=== PATIENT | female | born 1965 | race Caucasian/White ===

== ENCOUNTER 2016-09-19 17:21 | Emergency (ER) | payer OTHER ==
[~2016-09-19] VITALS: Ht 177.8 cm; Wt 81.5 kg
[~2016-09-19 17:21] MED LIST: LYSI500T11 PO; NORE5TAB PO; PARO10TA73 PO; PARO7.5C PO; TOPI50TA77 PO; ZOLP5TAB6 PO
[2016-09-19] MEDS ORDERED: SODIUM CHLORIDE 0.9% 1,000 ML IV ONE (17:43)
[2016-09-19] MEDS ORDERED: SODIUM CHLORIDE 0.9% 1,000ML IVBOLUS ONE (18:00)
[2016-09-19] MEDS ORDERED: METOCLOPRAMIDE 5 MG/ML, 2ML IVPush ONE (18:00)
[2016-09-19] MEDS ORDERED: HYDROmorphone 1 MG/ML, 1ML IVPush PRN ×2 (18:00→19:30)
[2016-09-19] MEDS ORDERED: SODIUM CHLORIDE FLUSH 10ML SYR IVF ONE (18:00)
[2016-09-19] MEDS ORDERED: METOCLOPRAMIDE 5 MG/ML, 2ML ONE (18:06)
[2016-09-19] MEDS ORDERED: HYDROmorphone 1 MG/ML, 1ML ONE ×2 (18:06→19:49)
[2016-09-19 20:51] VITALS: BP 142/80
== END 2016-09-19 20:52 | disposition home or self-care (01) ==
LOC: ED 18:17
DX: G43.909 Migraine, unspecified, not intractable, without status migrainosus (principal); K58.9 Irritable bowel syndrome, unspecified; Z90.710 Acquired absence of both cervix and uterus; Z90.49 Acquired absence of other specified parts of digestive tract
CPT/HCPCS: 96361; 96374; 96375; 96376; 99284; J1170; J2765; J7030

== ENCOUNTER 2016-11-24 14:15 | Emergency (ER) | payer OTHER ==
[~2016-11-24] VITALS: Ht 177.8 cm; Wt 78.0 kg
[2016-11-24] MEDS ORDERED: METOCLOPRAMIDE 5 MG/ML, 2ML ONE (14:53)
[2016-11-24] MEDS ORDERED: HYDROmorphone 1 MG/ML, 1ML ONE (14:53)
[2016-11-24] MEDS ORDERED: HYDROmorphone 1 MG/ML, 1ML IV ONE (15:00)
[2016-11-24] MEDS ORDERED: SODIUM CHLORIDE FLUSH 10ML SYR IVF ONE (15:00)
[2016-11-24] MEDS ORDERED: METOCLOPRAMIDE 5 MG/ML, 2ML IVPush ONE (15:00)
[2016-11-24] MEDS ORDERED: SODIUM CHLORIDE 0.9% 1,000ML IVBOLUS ONE (15:00)
[2016-11-24 15:01] LABS: ASPARTATE AMINO TRANSFERASE 36 U/L (15-37); BLOOD UREA NITROGEN 16 mg/dL (7-18)
[2016-11-24] MEDS ORDERED: ONDANSETRON 2MG/ML, 2ML ONE ×2 (16:08→18:44)
[2016-11-24] MEDS ORDERED: ONDANSETRON 2MG/ML, 2ML IVPush ONE ×2 (16:30→19:00)
[2016-11-24] MEDS ORDERED: DEXAMETHASONE 4 MG/ML, 1ML IVPush ONE (18:00)
[2016-11-24] MEDS ORDERED: MAGNESIUM SULFATE PMX 2GM/50ML 50 ML IV ONE (18:00)
[2016-11-24] MEDS ORDERED: DEXAMETHASONE 4 MG/ML, 5ML ONE (18:03)
[2016-11-24 20:33] VITALS: BP 138/80
== END 2016-11-24 20:35 | disposition home or self-care (01) ==
LOC: ED 14:56
DX: R51 Headache (principal); R11.2 Nausea with vomiting, unspecified; R19.7 Diarrhea, unspecified; Z90.49 Acquired absence of other specified parts of digestive tract; Z90.710 Acquired absence of both cervix and uterus; Z90.721 Acquired absence of ovaries, unilateral
CPT/HCPCS: 36415; 80053; 83690; 85025; 96361; 96365; 96366; 96375; 96376; 99285; J1100; J1170; J2405; J2765; J3475; J7030

== ENCOUNTER 2017-09-26 11:10 | Emergency (ER) | payer OTHER ==
[~2017-09-26] VITALS: Ht 177.8 cm; Wt 72.0 kg
[~2017-09-26 11:10] MED LIST changes: -LYSI500T11 PO; +LYSI500T25 PO; -TOPI50TA77 PO; +TOPI50TA8 PO
[2017-09-26 11:34] LABS: MICROSCOPIC NOT IND
[2017-09-26 11:37] LABS: CULTURE INDICATED? NO
[2017-09-26] MEDS ORDERED: MORPHINE SULFATE 4 MG/ML, 1ML IVPush PRN (12:00)
[2017-09-26] MEDS ORDERED: SODIUM CHLORIDE 0.9% 1,000ML IVBOLUS ONE (12:00)
[2017-09-26] MEDS ORDERED: SODIUM CHLORIDE FLUSH 10ML SYR IVF ONE (12:00)
[2017-09-26] MEDS ORDERED: METOCLOPRAMIDE 5 MG/ML, 2ML IVPush ONE (12:00)
[2017-09-26 12:05] LABS: BASOPHILS # (AUTO) 0.04 x10^3/uL (0-0.1); BASOPHILS % (AUTO) 1 % (0-1); EOSINOPHILS # (AUTO) 0.12 x10^3/uL (0-0.4); EOSINOPHILS % (AUTO) 3 % (1-7); LYMPHOCYTES % (AUTO) 34 % (22-44); MD NO; MEAN CORPUSCULAR HEMOGLOBIN 25.2 pg (27.0-34.8); MEAN CORPUSCULAR HGB CONC 31.7 g/dL (32.4-35.8); MEAN CORPUSCULAR VOLUME 79.4 fL (80-100); MONOCYTES # (AUTO) 0.27 x10^3/uL (0.2-0.8); MONOCYTES % (AUTO) 8 % (2-9); NEUTROPHILS # (AUTO) 1.89 x10^3/uL (1.8-6.8); NEUTROPHILS % (AUTO) 54 % (42-75); PLATELET COUNT 294 x10^3/uL (130-400); RED BLOOD COUNT 4.54 x10^6/uL (3.82-5.3); RED CELL DISTRIBUTION WIDTH 16.8 % (9.6-15.2)
[2017-09-26 12:13] LABS: ALANINE AMINOTRANSFERASE 29 U/L (12-78); ALBUMIN 3.7 g/dL (3.4-5.0); ANION GAP 6 mmol/L (5-15); CALCIUM 8.5 mg/dL (8.5-10.1); CHLORIDE 113 mmol/L (98-107); CREATININE 0.62 mg/dL (0.55-1.02)
[2017-09-26 12:16] LABS: ALKALINE PHOSPHATASE 83 U/L (45-117); BILIRUBIN,TOTAL 0.3 mg/dL (0.2-1.0); TOTAL PROTEIN 7.3 g/dL (6.4-8.2)
[2017-09-26] MEDS ORDERED: METOCLOPRAMIDE 5 MG/ML, 2ML ONE (12:21)
[2017-09-26] MEDS ORDERED: MORPHINE SULFATE 4 MG/ML, 1ML ONE (12:21)
[2017-09-26 12:43] VITALS: BP 126/76
[2017-09-26] MEDS ORDERED: OMNIPAQUE 350 MG/ML, 100ML BOTTLE ONE (12:43)
== END 2017-09-26 13:55 | disposition home or self-care (01) ==
LOC: ED 13:39
DX: R10.31 Right lower quadrant pain (principal); K58.0 Irritable bowel syndrome with diarrhea; G89.29 Other chronic pain; Z90.49 Acquired absence of other specified parts of digestive tract; Z90.710 Acquired absence of both cervix and uterus
CPT/HCPCS: 36415; 74177; 80053; 81003; 83690; 85025; 93005; 96361; 96374; 96375; 99285; J2765; J7030; Q9967

== ENCOUNTER 2018-02-17 20:43 | Emergency (ER) | payer OTHER ==
[~2018-02-17] VITALS: Ht 177.8 cm; Wt 65.0 kg
[2018-02-17] MEDS ORDERED: KETOROLAC 30 MG/1 ML IVPush ONE (21:30)
[2018-02-17] MEDS ORDERED: SODIUM CHLORIDE FLUSH 10ML SYR IVF ONE (21:30)
[2018-02-17] MEDS ORDERED: DIPHENHYDRAMINE 25 MG CAPSULE PO ONE (21:30)
[2018-02-17] MEDS ORDERED: ACETAMINOPHEN 500 MG TABLET PO ONE (21:30)
[2018-02-17] MEDS ORDERED: SODIUM CHLORIDE 0.9% 1,000ML IVBOLUS ONE (21:30)
[2018-02-17] MEDS ORDERED: METOCLOPRAMIDE 5 MG/ML, 2ML IVPush ONE (21:30)
[2018-02-17 21:43] LABS: BASOPHILS # (AUTO) 0.01 x10^3/uL (0-0.1); BASOPHILS % (AUTO) 0 % (0-1); EOSINOPHILS # (AUTO) 0.01 x10^3/uL (0-0.4); EOSINOPHILS % (AUTO) 0 % (1-7); LYMPHOCYTES # (AUTO) 0.81 x10^3/uL (1-3.4); LYMPHOCYTES % (AUTO) 15 % (22-44); MD NO; MEAN CORPUSCULAR HEMOGLOBIN 28.1 pg (27.0-34.8); MEAN CORPUSCULAR HGB CONC 33.1 g/dL (32.4-35.8); MEAN CORPUSCULAR VOLUME 84.8 fL (80-100); MEAN PLATELET VOLUME 7.8 fL (7.4-10.4); MONOCYTES # (AUTO) 0.43 x10^3/uL (0.2-0.8); MONOCYTES % (AUTO) 8 % (2-9); NEUTROPHILS # (AUTO) 4.34 x10^3/uL (1.8-6.8); NEUTROPHILS % (AUTO) 77 % (42-75); PLATELET COUNT 218 x10^3/uL (130-400); RED BLOOD COUNT 4.49 x10^6/uL (3.82-5.3)
[2018-02-17 21:50] LABS: ALBUMIN 3.7 g/dL (3.4-5.0); ANION GAP 8 mmol/L (5-15); CALCIUM 8.8 mg/dL (8.5-10.1); CHLORIDE 109 mmol/L (98-107); CREATININE 0.76 mg/dL (0.55-1.02)
[2018-02-17] MEDS ORDERED: KETOROLAC 30 MG/1 ML ONE (21:51)
[2018-02-17] MEDS ORDERED: METOCLOPRAMIDE 5 MG/ML, 2ML ONE (21:51)
[2018-02-17] MEDS ORDERED: ACETAMINOPHEN 500 MG TABLET ONE (21:51)
[2018-02-17] MEDS ORDERED: DIPHENHYDRAMINE 25 MG CAPSULE ONE (21:51)
[2018-02-17 21:59] LABS: RAPID INFLUENZA A Negative (Negative); RAPID INFLUENZA B Negative (Negative)
[2018-02-17 22:21] VITALS: BP 123/79
[2018-02-17 22:34] LABS: MICROSCOPIC AUTO
[2018-02-17 22:48] LABS: CULTURE INDICATED? YES
== END 2018-02-17 23:54 | disposition home or self-care (01) ==
LOC: ED 23:48
DX: B34.9 Viral infection, unspecified (principal); G43.909 Migraine, unspecified, not intractable, without status migrainosus; F41.1 Generalized anxiety disorder; Z90.49 Acquired absence of other specified parts of digestive tract; Z90.710 Acquired absence of both cervix and uterus
CPT/HCPCS: 36415; 71045; 80048; 81001; 82040; 85025; 87081; 87086; 87400; 87880; 96374; 96375; 99285; J1885; J2765; J7030; Q0163

== ENCOUNTER 2018-07-10 15:24 | Outpatient (CLI) | payer OTHER ==
[2018-07-10] MEDS ORDERED: Fioricet PO (15:51)
[2018-07-10] MEDS ORDERED: ALPR1TAB2 PO (15:51)
[2018-07-10] MEDS ORDERED: TOPI25TA8 PO (15:51)
[2018-07-10] MEDS ORDERED: ZOLP10TA5 PO (15:51)
[2018-07-10] MEDS ORDERED: MULT-658 PO (15:51)
== END 2018-07-10 23:59 | disposition home or self-care (01) ==
LOC: STAR 15:24
PROVIDERS: ATTEND Otolaryngology
DX: Z02.9 Encounter for administrative examinations, unspecified (principal)

== ENCOUNTER 2018-07-19 05:42 | Day surgery (SDC) | payer OTHER ==
[~2018-07-19] VITALS: Ht 177.8 cm; Wt 67.0 kg
[~2018-07-19 05:42] MED LIST changes: +ALPR1TAB2 PO; +Fioricet PO; +MULT-658 PO; +TOPI25TA8 PO; +ZOLP10TA5 PO
[2018-07-19 06:31] VITALS: BP 109/71
[2018-07-19] MEDS ORDERED: LACTATED RINGERS 1,000 ML IV SCH (06:34)
[2018-07-19] MEDS ORDERED: CIPROFLOXACIN/HYDROCORTISONE EAR SUSP 0.2-1%, 10ML ONE (06:57)
[2018-07-19] MEDS ORDERED: PROPOFOL 10 MG/ML, 20ML ONE (07:17)
[2018-07-19] MEDS ORDERED: OXYcodone 5 MG/5 ML ORAL.SOL UDC PO PRN (07:30)
[2018-07-19] MEDS ORDERED: KETOROLAC 30 MG/1 ML IV PRN (07:30)
[2018-07-19] MEDS ORDERED: METOCLOPRAMIDE 5 MG/ML, 2ML IV PRN (07:30)
[2018-07-19] MEDS ORDERED: ACETAMINOPHEN 325 MG TABLET PO PRN (07:30)
[2018-07-19] MEDS ORDERED: LORazepam 2 MG/ML, 1ML IVPush PRN (07:30)
[2018-07-19] MEDS ORDERED: FENTANYL PF 100 MCG/2ML ONE (07:37)
[2018-07-19] MEDS ORDERED: ACETAMINOPHEN 650 MG/20.3 ML UDC ONE (07:37)
[2018-07-19] MEDS ORDERED: OXYcodone 5 MG/5 ML ORAL.SOL UDC ONE (07:38)
[2018-07-19] MEDS: FENTANYL PF 100 MCG/2ML IV PRN ×3 (07:40→07:51)
== END 2018-07-19 09:10 | disposition home or self-care (01) ==
LOC: OUT 05:42
PROVIDERS: ATTEND Otolaryngology
DX: H69.83 Other specified disorders of Eustachian tube, bilateral (principal); F41.9 Anxiety disorder, unspecified; Z88.8 Allergy status to other drugs, medicaments and biological substances; Z90.710 Acquired absence of both cervix and uterus
CPT/HCPCS: 69436; J2704; J3010; J7120

== ENCOUNTER 2018-08-07 15:38 | Emergency (ER) | payer OTHER ==
[~2018-08-07] VITALS: Ht 177.8 cm; Wt 66.0 kg
[2018-08-07 15:41] VITALS: BP 147/80
[2018-08-07 16:24] LABS: BASOPHILS % (AUTO) 0 % (0-1); EOSINOPHILS # (AUTO) 0.08 x10^3/uL (0-0.4); EOSINOPHILS % (AUTO) 2 % (1-7); LYMPHOCYTES # (AUTO) 1.59 x10^3/uL (1-3.4); LYMPHOCYTES % (AUTO) 35 % (22-44); MD NO; MEAN CORPUSCULAR HEMOGLOBIN 29.4 pg (27.0-34.8); MEAN CORPUSCULAR HGB CONC 32.5 g/dL (32.4-35.8); MEAN CORPUSCULAR VOLUME 90.4 fL (80-100); MEAN PLATELET VOLUME 8.4 fL (7.4-10.4); MONOCYTES # (AUTO) 0.34 x10^3/uL (0.2-0.8); MONOCYTES % (AUTO) 7 % (2-9); NEUTROPHILS # (AUTO) 2.58 x10^3/uL (1.8-6.8); NEUTROPHILS % (AUTO) 56 % (42-75); PLATELET COUNT 244 x10^3/uL (130-400); RED BLOOD COUNT 4.77 x10^6/uL (3.82-5.3); RED CELL DISTRIBUTION WIDTH 15.3 % (9.6-15.2)
[2018-08-07 16:35] LABS: ALBUMIN 4.4 g/dL (3.4-5.0); ANION GAP 6 mmol/L (5-15); CALCIUM 9.2 mg/dL (8.5-10.1); CHLORIDE 107 mmol/L (98-107); CREATININE 0.76 mg/dL (0.55-1.02)
== END 2018-08-07 17:00 | disposition home or self-care (01) ==
LOC: ED 16:49
DX: R55 Syncope and collapse (principal); R11.0 Nausea; M25.512 Pain in left shoulder; G89.29 Other chronic pain; Z90.710 Acquired absence of both cervix and uterus; Z90.49 Acquired absence of other specified parts of digestive tract; Z90.721 Acquired absence of ovaries, unilateral
CPT/HCPCS: 36415; 70450; 80048; 82040; 85025; 93005; 99284

== ENCOUNTER 2018-09-08 16:06 | Emergency (ER) | payer OTHER ==
[~2018-09-08] VITALS: Ht 177.8 cm; Wt 67.8 kg
[2018-09-08] MEDS ORDERED: KETOROLAC 30 MG/1 ML IM ONE (17:00)
[2018-09-08] MEDS ORDERED: KETOROLAC 30 MG/1 ML ONE (17:43)
--- NOTE | 2018-09-08 19:29 | NUR ---
PT BACK FROM MRI. AT DESK ASKING EVA MUÑOZ FOR PAIN MEDS FOR PT AFTER HAVING TO BE IN MRI.
[2018-09-08] MEDS ORDERED: OXYcodone/APAP 5/325MG TABLET ONE (19:40)
[2018-09-08 19:48] VITALS: BP 123/72
[2018-09-08] MEDS ORDERED: OXYcodone/APAP 5/325MG TABLET PO ONE (20:00)
== END 2018-09-08 20:07 | disposition home or self-care (01) ==
LOC: ED 17:16
DX: M25.512 Pain in left shoulder (principal); G43.909 Migraine, unspecified, not intractable, without status migrainosus; Z90.49 Acquired absence of other specified parts of digestive tract; Z90.710 Acquired absence of both cervix and uterus; W01.0XXA Fall on same level from slipping, tripping and stumbling without subsequent striking against object, initial encounter; Y93.89 Activity, other specified; Y92.89 Other specified places as the place of occurrence of the external cause; Y99.8 Other external cause status
CPT/HCPCS: 71046; 72125; 73030; 73221; 96372; 99284; J1885

== ENCOUNTER 2019-07-09 21:57 | Emergency (ER) | payer OTHER ==
[~2019-07-09] VITALS: Ht 177.8 cm; Wt 65.0 kg
[~2019-07-09 21:57] MED LIST changes: +FREM225S INJ; +MECL12.581 PO; +OXYC1TAB7 PO
[2019-07-09] MEDS ORDERED: DIPHENHYDRAMINE 50 MG/ML, 1ML IVPush ONE (22:30)
[2019-07-09] MEDS ORDERED: MORPHINE SULFATE 4 MG/ML, 1ML IVPush PRN (22:30)
[2019-07-09] MEDS ORDERED: SODIUM CHLORIDE 0.9% 1,000ML IVBOLUS ONE (22:30)
[2019-07-09] MEDS ORDERED: KETOROLAC 30 MG/1 ML IVPush ONE (22:30)
[2019-07-09] MEDS ORDERED: SODIUM CHLORIDE FLUSH 10ML SYR IVF ONE (22:30)
[2019-07-09] MEDS ORDERED: ACETAMINOPHEN 325 MG TABLET PO ONE (22:30)
[2019-07-09] MEDS ORDERED: PROCHLORPERAZINE 5 MG/ML, 2ML IVPush ONE (22:30)
[2019-07-09] MEDS ORDERED: LORazepam 2 MG/ML, 1ML IVPush ONE (22:30)
[2019-07-09] MEDS ORDERED: PROCHLORPERAZINE 5 MG/ML, 2ML ONE (22:31)
[2019-07-09] MEDS ORDERED: DIPHENHYDRAMINE 50 MG/ML, 1ML ONE (22:31)
[2019-07-09] MEDS ORDERED: KETOROLAC 30 MG/1 ML ONE (22:31)
[2019-07-09] MEDS ORDERED: MORPHINE SULFATE 4 MG/ML, 1ML ONE (22:31)
[2019-07-09] MEDS ORDERED: ACETAMINOPHEN 325 MG TABLET ONE (22:32)
[2019-07-09] MEDS ORDERED: LORazepam 2 MG/ML, 1ML ONE (22:33)
--- NOTE | 2019-07-09 22:38 | NUR ---
CT DELAY, RN WILL CALL WHEN PT IS READY.
--- NOTE | 2019-07-09 22:53 | NUR ---
piv placed medicated per md order
[2019-07-09 23:11] LABS: RAPID INFLUENZA A Negative (Negative); RAPID INFLUENZA B Negative (Negative)
--- NOTE | 2019-07-09 23:11 | NUR ---
placed on all monitoring at bs
[2019-07-09 23:23] LABS: BASOPHILS # (AUTO) 0.01 x10^3/uL (0-0.1); BASOPHILS % (AUTO) 0 % (0-1); EOSINOPHILS # (AUTO) 0.02 x10^3/uL (0-0.4); EOSINOPHILS % (AUTO) 0 % (1-7); LYMPHOCYTES # (AUTO) 0.26 x10^3/uL (1-3.4); LYMPHOCYTES % (AUTO) 6 % (22-44); MD NO; MEAN CORPUSCULAR HEMOGLOBIN 31.4 pg (27.0-34.8); MEAN CORPUSCULAR HGB CONC 33.4 g/dL (32.4-35.8); MEAN PLATELET VOLUME 8.6 fL (7.4-10.4); MONOCYTES # (AUTO) 0.35 x10^3/uL (0.2-0.8); MONOCYTES % (AUTO) 8 % (2-9); NEUTROPHILS # (AUTO) 3.53 x10^3/uL (1.8-6.8); NEUTROPHILS % (AUTO) 85 % (42-75); PLATELET COUNT 181 x10^3/uL (130-400); RED BLOOD COUNT 4.03 x10^6/uL (3.82-5.3); RED CELL DISTRIBUTION WIDTH 13.1 % (9.6-15.2)
[2019-07-09 23:27] LABS: ALANINE AMINOTRANSFERASE 33 U/L (12-78); ALBUMIN 3.7 g/dL (3.4-5.0); ANION GAP 6 mmol/L (5-15); CALCIUM 7.9 mg/dL (8.5-10.1); CHLORIDE 111 mmol/L (98-107); CREATININE 0.55 mg/dL (0.55-1.02)
[2019-07-09 23:29] LABS: ALKALINE PHOSPHATASE 77 U/L (45-117); BILIRUBIN,TOTAL 0.2 mg/dL (0.2-1.0); TOTAL PROTEIN 6.6 g/dL (6.4-8.2)
[2019-07-09 23:44] VITALS: BP 109/61
[2019-07-09] MEDS ORDERED: LIDOCAINE-MPF 1%, 5ML ONE (23:48)
--- NOTE | 2019-07-10 | NUR ---
SET UP FOR LP, CONSENT SIGNED IN NAD AT THIS TIME
[2019-07-10 01:07] LABS: GLUCOSE, CSF 60 mg/dL (40-80)
[2019-07-10 01:15] LABS: TOTAL PROTEIN,CSF 38 mg/dL (15-45)
--- NOTE | 2019-07-10 02:00 | NUR ---
report from jud barrera to be discharged.
== END 2019-07-10 02:09 | disposition home or self-care (01) ==
LOC: ED 07-10 00:14
DX: G43.909 Migraine, unspecified, not intractable, without status migrainosus (principal); B34.9 Viral infection, unspecified; Z90.49 Acquired absence of other specified parts of digestive tract; Z90.89 Acquired absence of other organs; Z90.721 Acquired absence of ovaries, unilateral
CPT/HCPCS: 36415; 62270; 70450; 80053; 82945; 84157; 85025; 87070; 87205; 87252; 87400; 89051; 96361; 96374; 96375; 99285; J0780; J1200; J1885; J2060; J2270; J7030

== ENCOUNTER 2020-01-22 05:58 | Emergency (ER) | payer OTHER ==
[~2020-01-22] VITALS: Ht 177.8 cm; Wt 63.0 kg
--- NOTE | 2020-01-22 06:17 | NUR ---
PT HAS NAUSEA AND PAIN IN HER ABDOMEN THAT STARTED AT 0300 TONIGHT, DENIES ANY ISSUES WITH URINATION. PT IN GUARDED POSITION IN BED, PT PLACED ON MONITORS, SAFETY MEASURES IN PLACE, AND ERP AT BEDSIDE FOR EVAL
[2020-01-22] MEDS ORDERED: SODIUM CHLORIDE 0.9% 1,000ML IVBOLUS ONE (06:30)
[2020-01-22] MEDS ORDERED: MORPHINE SULFATE 4 MG/ML, 1ML IVPush PRN (06:30)
[2020-01-22] MEDS ORDERED: SODIUM CHLORIDE FLUSH 10ML SYR IVF ONE (06:30)
[2020-01-22] MEDS ORDERED: ONDANSETRON 2MG/ML, 2ML IVPush ONE (06:30)
[2020-01-22] MEDS ORDERED: ONDANSETRON 2MG/ML, 2ML ONE (06:33)
[2020-01-22] MEDS ORDERED: MORPHINE SULFATE 4 MG/ML, 1ML ONE (06:33)
[2020-01-22 06:42] LABS: BASOPHILS # (AUTO) 0.03 x10^3/uL (0-0.1); BASOPHILS % (AUTO) 1 % (0-1); EOSINOPHILS # (AUTO) 0.08 x10^3/uL (0-0.4); EOSINOPHILS % (AUTO) 2 % (1-7); LYMPHOCYTES # (AUTO) 1.39 x10^3/uL (1-3.4); LYMPHOCYTES % (AUTO) 27 % (22-44); MD NO; MEAN CORPUSCULAR HEMOGLOBIN 31.1 pg (27.0-34.8); MEAN CORPUSCULAR HGB CONC 31.9 g/dL (32.4-35.8); MEAN CORPUSCULAR VOLUME 97.6 fL (80-100); MEAN PLATELET VOLUME 7.9 fL (7.4-10.4); MONOCYTES # (AUTO) 0.45 x10^3/uL (0.2-0.8); MONOCYTES % (AUTO) 9 % (2-9); NEUTROPHILS % (AUTO) 63 % (42-75); PLATELET COUNT 212 x10^3/uL (130-400); RED BLOOD COUNT 4.64 x10^6/uL (3.82-5.3); RED CELL DISTRIBUTION WIDTH 13.7 % (9.6-15.2)
[2020-01-22 06:53] LABS: ALANINE AMINOTRANSFERASE 41 U/L (12-78); ALBUMIN 4.1 g/dL (3.4-5.0); ANION GAP 7 mmol/L (5-15); CALCIUM 8.8 mg/dL (8.5-10.1); CHLORIDE 109 mmol/L (98-107); CREATININE 0.75 mg/dL (0.55-1.02)
[2020-01-22 06:55] LABS: ALKALINE PHOSPHATASE 75 U/L (45-117); BILIRUBIN,TOTAL 0.4 mg/dL (0.2-1.0); TOTAL PROTEIN 7.5 g/dL (6.4-8.2)
[2020-01-22 07:05] VITALS: BP 106/59
--- NOTE | 2020-01-22 07:06 | NUR ---
[facility] HAND-OFF REPORT RECEIVED FROM LIUDMILA MORALES. ASSUMING CARE OF PATIENT. URINE COLLECTED AND SENT TO LAB.
[2020-01-22 07:25] LABS: MICROSCOPIC NOT IND
--- NOTE | 2020-01-22 07:27 | NUR ---
PT IS BACK FROM CT. AT BEDSIDE.
--- NOTE | 2020-01-22 08:29 | NUR ---
Patient given discharge instructions and they have confirmed that they understand the instructions. Patient ambulatory with steady gait.
[2020-01-22] MEDS ORDERED: OMNIPAQUE 350 MG/ML, 100ML BOTTLE ONE (08:57)
== END 2020-01-22 08:30 | disposition home or self-care (01) ==
LOC: ED 06:58
DX: K52.9 Noninfective gastroenteritis and colitis, unspecified (principal); R19.7 Diarrhea, unspecified; R10.84 Generalized abdominal pain; R11.0 Nausea; G43.909 Migraine, unspecified, not intractable, without status migrainosus; Z90.49 Acquired absence of other specified parts of digestive tract; Z90.721 Acquired absence of ovaries, unilateral; Z88.6 Allergy status to analgesic agent
CPT/HCPCS: 36415; 74177; 80053; 81003; 83690; 85025; 96361; 96374; 96375; 99285; J2270; J2405; J7030; Q9967